=== PATIENT | male | born 1990 | race Caucasian/White ===

== ENCOUNTER 2016-06-12 14:02 | Emergency (ER) | payer OTHER ==
[2016-06-12 14:59] LABS: ABSOLUTE NEUTROPHIL COUNT 7.1 K/mm3 (1.8-7.7); BASO % 0.2 % (0.2-1.0); EOS # 0.1 (0.0-0.5); EOS % 0.7 % (0.9-2.9); HEMATOCRIT 46.3 % (32.0-52.0); HEMOGLOBIN 15.6 gm/l (14.0-18.0); IMM NEUT% 0.2 % (0-1); LYMPH # 1.2 (1.0-4.8); LYMPH % 13.5 % (15-45); MEAN CELL VOLUME 90.8 fl (80.0-94.0); MEAN CORPUSCULAR HEMOGLOBIN 30.6 pg (27.0-31.0); MEAN CORPUSCULAR HGB CONC 33.7 g/dl (33.0-37.0); MEAN PLATELET VOLUME 9.6 fl (7.4-10.4); MONO # 0.7 (0.0-0.8); NEUT % 77.4 % (43-75); PLATELET COUNT 230 K/mm3 (130-400)
[2016-06-12 15:25] LABS: ALB/GLOB RATIO 1.8 (>1.0); ALBUMIN 4.7 gm/dL (3.5-5.7); CALCIUM 9.7 mg/dL (8.6-10.3)
== END 2016-06-12 16:26 | disposition home or self-care (01) ==
LOC: ED 14:02
DX: R09.1 Pleurisy (principal); R07.9 Chest pain, unspecified; Z87.891 Personal history of nicotine dependence